=== PATIENT | male | born 1935 | race Caucasian/White ===

== ENCOUNTER 2016-05-12 09:12 | Outpatient (CLI) | payer MEDICARE ==
[2016-05-12 11:44] LABS: Cardiac Risk 3.3 (Less than 4.5)
== END 2016-05-12 09:13 | disposition home or self-care (01) ==
LOC: NAV LABSP 09:12
PROVIDERS: ATTEND Family Medicine
DX: I25.10 Atherosclerotic heart disease of native coronary artery without angina pectoris (principal)
CPT/HCPCS: 36415; 80061

== ENCOUNTER 2016-05-16 08:01 | Outpatient (CLI) | payer MEDICARE ==
[2016-05-16 09:00] LABS: #Eosinphils 0.1 thou/uL (0.0-0.7); #Lymphocytes 1.7 thou/uL (1.20-3.40); #Monocytes 0.4 thou/uL (0.11-0.59); #Neutrophils 8.2 thou/uL (1.40-6.50); %Basophils 0.4 % (0.0-1.0); %Eosinophils 1.2 % (0.0-10.0); %Lymphocytes 16.5 % (21.0-51.0); %Monocytes 4.1 % (0.0-10.0); %Neutrophils 77.8 % (42.0-75.0); Hemoglobin 13.5 g/dL (14.0-18.0); Mean Corpuscular HGB CONC 32.4 g/dL (32.0-36.0); Mean Corpuscular Hemoglobin 32.2 pg (27.0-31.0); Mean Corpuscular Volume 99.3 fl (80.0-94.0); Mean Platelet Volume 7.6 fL (7.4-10.4); Platelet Count 227 thou/uL (130-400); RBC Distribution Width 13.8 % (11.5-14.5); Red Blood Cell (RBC) Count 4.18 mill/uL (4.70-6.10); White Blood Cell (WBC) Count 10.6 thou/uL (4.8-10.8)
[2016-05-16 09:11] LABS: Anion Gap 16 mmol/L (10-20); BUN (Urea Nitrogen) 19 mg/dL (8.4-25.7); Calc. Creatinine Clearance 0 mL/min (70-130); Calcium 9.4 mg/dL (7.8-10.44); Carbon Dioxide 26 mmol/L (23-31); Cardiac Risk 3.1 (Less than 4.5); Chloride 105 mmol/L (98-107); Cholesterol 151 mg/dL (< 200 Desired); Estimated GFR-MDRD 77; Glucose 73 mg/dL (83-110); HDL Cholesterol 49 mg/dL (>60 Neg Risk); LDL Cholesterol, Calculated 85 mg/dL; Potassium 4.4 mmol/L (3.5-5.1); Sodium 143 mmol/L (136-145); Triglycerides 84 mg/dL (Less than 150)
== END 2016-05-16 08:02 | disposition home or self-care (01) ==
LOC: NAV LABSP 08:01
PROVIDERS: ATTEND Family Medicine
DX: E11.9 Type 2 diabetes mellitus without complications (principal)
CPT/HCPCS: 36415; 80048; 80061; 84443; 85025

== ENCOUNTER 2016-07-01 14:52 | Outpatient (CLI) | payer MEDICARE ==
[2016-07-01 20:43] LABS: Bilirubin Negative (Negative); Blood, Urine Negative (Negative); Clarity Clear (Clear); Glucose, Urine (Dipstick) Negative (Negative); Leukocyte Trace (Negative); Nitrite Negative (Negative); Protein, Urine (Dipstick) Negative (Neg-Trace); Urobilinogen 0.2 mg/dL (0.2-1.0); pH, Urine 5.5 (5.0-9.0)
[2016-07-01 21:25] LABS: Specific Gravity, Urine 1.025 (1.002-1.036)
[2016-07-01 21:26] LABS: Bacteria/HPF None Seen HPF (None Seen); Crystals/HPF 2+ AMORPH URATES HPF (Negative); RBC/HPF None Seen HPF (0-3); Squamous Epithelial 0-3 HPF (0-3); WBC/HPF 0-3 HPF (0-3)
== END 2016-07-01 14:53 | disposition home or self-care (01) ==
LOC: NAV LABSP 14:52
PROVIDERS: ATTEND Family Medicine
DX: R41.82 Altered mental status, unspecified (principal)
CPT/HCPCS: 81001; 87086

== ENCOUNTER 2016-08-08 07:30 | Outpatient (CLI) | payer OTHER ==
[2016-08-08 08:10] LABS: #Basophils 0.1 thou/uL (0.0-0.2); #Eosinphils 0.3 thou/uL (0.0-0.7); #Lymphocytes 2.5 thou/uL (1.20-3.40); #Monocytes 0.5 thou/uL (0.11-0.59); #Neutrophils 3.2 thou/uL (1.40-6.50); %Basophils 0.9 % (0.0-1.0); %Eosinophils 5.4 % (0.0-10.0); %Lymphocytes 37.7 % (21.0-51.0); %Monocytes 7.6 % (0.0-10.0); %Neutrophils 48.5 % (42.0-75.0); Hemoglobin 12.8 g/dL (14.0-18.0); Mean Corpuscular HGB CONC 32.9 g/dL (32.0-36.0); Mean Corpuscular Hemoglobin 30.9 pg (27.0-31.0); Mean Corpuscular Volume 93.9 fl (80.0-94.0); Platelet Count 208 thou/uL (130-400); Red Blood Cell (RBC) Count 4.14 mill/uL (4.70-6.10); White Blood Cell (WBC) Count 6.5 thou/uL (4.8-10.8)
[2016-08-08 08:30] LABS: Anion Gap 14 mmol/L (10-20); BUN (Urea Nitrogen) 13 mg/dL (8.4-25.7); Calc. Creatinine Clearance 0 mL/min (70-130); Carbon Dioxide 27 mmol/L (23-31); Chloride 103 mmol/L (98-107); Cholesterol 135 mg/dl (< 200 Desired); Estimated GFR-MDRD Greater than 90; Glucose 64 mg/dL (83-110); HDL Cholesterol 45 mg/dL (>60 Neg Risk); LDL Cholesterol, Calculated 75 mg/dL; Potassium 3.9 mmol/L (3.5-5.1); Sodium 140 mmol/L (136-145); Triglycerides 75 mg/dL (Less than 150)
== END 2016-08-08 07:31 | disposition home or self-care (01) ==
LOC: NAV LABSP 07:30
PROVIDERS: ATTEND Family Medicine
DX: E11.9 Type 2 diabetes mellitus without complications (principal)
CPT/HCPCS: 36415; 80048; 80061; 84443; 85025

== ENCOUNTER 2016-09-28 08:25 | Emergency (ER) | payer MEDICARE, SELFPAY ==
[2016-09-28] MEDS ORDERED: Acetaminophen 325 MG TAB ONE (09:33)
--- NOTE | 2016-09-28 10:13 | CT ---
CT HEAD NONCONTRAST DATE: 09/28/16 HISTORY: Fall. Head injury. COMPARISON: 11/07/15. FINDINGS: There is no evidence of acute intracranial hemorrhage or infarct. Diffuse cortical atrophy and chron ic ischemic small vessel disease are again demonstrated. There is no mass effect or shift of midline structures. Visualized paranasal sinuses remain well aerated. IMPRESSION: No acute traumatic injury is demonstrated. POS: [facility]
--- NOTE | 2016-09-28 10:19 | CT ---
CT CERVICAL SPINE NONCONTRAST: Date: 09/28/16 HISTORY: Fall. Neck injury. FINDINGS: Vertebral body heights are maintained. Degenerative changes include osteophytosis, multilevel disc s pace narrowing, and minimal degenerative retrolisthesis at the C3-4 and C4-5 levels. Cervicothoracic alignment is intact. No acute fracture or dislocation apparent. There is prominent calcification at the carotid bifurcations. IMPRESSION: 1. Degenerative changes of the cervical spine. No acute osseous abnormalities are demonstrated. 2. Atherosclerosis. POS: [facility]
--- NOTE | 2016-09-28 10:49 | RAD ---
LEFT ELBOW 4 VIEWS: Date: 09/28/16 FINDINGS: Fall. Left elbow injury. FINDINGS: Radiocapitellar alignment is maintained. Mild osteophytosis is present. There is no acute fracture, dislocation, or fluid distention of the joint capsule evident. IMPRESSION: No acute osseous abnormalities are demonstrated. POS: [facility]
--- NOTE | 2016-09-28 11:05 | CT ---
CT CHEST NONCONTRAST: Date: 09/28/16 HISTORY: Fall. Chest wall injury. FINDINGS: A mildly displaced fracture involves the lateral aspect of the left 5th rib. There is no evidence of pneumothorax. Degenerative changes involve the thoracic spine. Lungs are hyperinflated with scattered areas of interstitial scarring and mild bibasilar atelectasis . A 0.8 cm noncalcified nodule is present at the superior segment left lower lobe. Lack of contrast limits evaluation of the mediastinum. No hematoma is apparent. There is calcificati on throughout the arterial structures. IMPRESSION: 1. Left fifth rib fracture. No evidence of pneumothorax. 2. Subcentimeter left lower lobe lung nodule. Please consider follow-up CT in 6 months to evaluate for stability. 3. Atherosclerosis. 4. COPD. POS: [facility]
--- NOTE | 2016-09-28 11:19 | RAD ---
AP PELVIS 1 VIEW: Date: 09/28/16 HISTORY: Fall. Pelvic injury. FINDINGS: Upper sacral ala are partially obscured but not reliably contiguous. No displaced pelvic ring fractu res are apparent. Osseous structures are demineralized. There are degenerative changes of the lumbar spine and hips. IMPRESSION: Possible sacral injury. If symptoms are referable to the sacrum, please consider dedicated CT of the osseous pelvis. POS: [facility]
== END 2016-09-28 10:10 ==
LOC: NAV ERS 08:25
DX: S22.32XA Fracture of one rib, left side, initial encounter for closed fracture (principal); S50.02XA Contusion of left elbow, initial encounter; I25.10 Atherosclerotic heart disease of native coronary artery without angina pectoris; E11.9 Type 2 diabetes mellitus without complications; I10 Essential (primary) hypertension; G30.9 Alzheimer's disease, unspecified; W01.10XA Fall on same level from slipping, tripping and stumbling with subsequent striking against unspecified object, initial encounter
CPT/HCPCS: 70450; 71250; 72125; 72170

== ENCOUNTER 2016-11-04 09:43 | Outpatient (CLI) | payer MEDICARE, OTHER ==
[2016-11-04 09:58] LABS: Hemoglobin 12.7 g/dL (14.0-18.0); Mean Corpuscular HGB CONC 32.6 g/dL (32.0-36.0); Mean Corpuscular Hemoglobin 31.3 pg (27.0-31.0); Mean Corpuscular Volume 96.2 fl (80.0-94.0); Mean Platelet Volume 7.5 fL (7.4-10.4); Platelet Count 194 thou/uL (130-400); RBC Distribution Width 13.1 % (11.5-14.5); Red Blood Cell (RBC) Count 4.04 mill/uL (4.70-6.10); White Blood Cell (WBC) Count 7.9 thou/uL (4.8-10.8)
[2016-11-04 10:16] LABS: Bilirubin Negative (Negative); Blood, Urine Trace (Negative); Clarity Cloudy (Clear); Glucose, Urine (Dipstick) Negative (Negative); Leukocyte Large (Negative); Nitrite Positive (Negative); Protein, Urine (Dipstick) 30 mg/dL (Neg-Trace); Urobilinogen 0.2 mg/dL (0.2-1.0)
[2016-11-04 10:33] LABS: pH, Urine Greater/Equal 9.0 (5.0-9.0)
[2016-11-04 10:35] LABS: Bacteria/HPF 1+ HPF (None Seen); RBC/HPF 0-3 HPF (0-3); Transitional Epithelial 0-3 HPF (0-3)
[2016-11-04 10:36] LABS: Other Microscopic Description NO
[2016-11-04 10:38] LABS: Crystals/HPF 2+ AMORPH URATES HPF (Negative)
== END 2016-11-04 09:44 | disposition home or self-care (01) ==
LOC: NAV LABSP 09:43
PROVIDERS: ATTEND Family Medicine
DX: R31.9 Hematuria, unspecified (principal)
CPT/HCPCS: 36415; 81001; 85027; 87077; 87086; 87186

== ENCOUNTER 2016-11-07 07:34 | Outpatient (CLI) | payer MEDICARE, OTHER ==
[2016-11-07 09:38] LABS: Hemoglobin A1c 6.1 % (4.0-6.0)
== END 2016-11-07 07:35 | disposition home or self-care (01) ==
LOC: NAV LABSP 07:34
PROVIDERS: ATTEND Nurse Practitioner Adult Health
DX: Z51.81 Encounter for therapeutic drug level monitoring (principal); Z79.899 Other long term (current) drug therapy
CPT/HCPCS: 36415; 83036

== ENCOUNTER 2016-11-11 11:25 | Outpatient (CLI) | payer MEDICARE, OTHER ==
[2016-11-11 14:44] LABS: #Basophils 0.1 thou/uL (0.0-0.2); #Eosinphils 0.3 thou/uL (0.0-0.7); #Lymphocytes 2.1 thou/uL (1.20-3.40); #Monocytes 0.3 thou/uL (0.11-0.59); #Neutrophils 2.5 thou/uL (1.40-6.50); %Basophils 1.2 % (0.0-1.0); %Eosinophils 5.7 % (0.0-10.0); %Lymphocytes 39.2 % (21.0-51.0); %Monocytes 6.5 % (0.0-10.0); %Neutrophils 47.6 % (42.0-75.0); Hemoglobin 12.4 g/dL (14.0-18.0); Mean Corpuscular HGB CONC 31.8 g/dL (32.0-36.0); Mean Corpuscular Hemoglobin 30.8 pg (27.0-31.0); Mean Corpuscular Volume 96.8 fl (80.0-94.0); Mean Platelet Volume 6.9 fL (7.4-10.4); Platelet Count 254 thou/uL (130-400); RBC Distribution Width 12.9 % (11.5-14.5); Red Blood Cell (RBC) Count 4.02 mill/uL (4.70-6.10); White Blood Cell (WBC) Count 5.3 thou/uL (4.8-10.8)
[2016-11-11 15:45] LABS: Anion Gap 13 mmol/L (10-20); BUN (Urea Nitrogen) 15 mg/dL (8.4-25.7); Calc. Creatinine Clearance 0 mL/min (70-130); Calcium 9.1 mg/dL (7.8-10.44); Carbon Dioxide 28 mmol/L (23-31); Cardiac Risk 3.2 (Less than 4.5); Chloride 103 mmol/L (98-107); Cholesterol 137 mg/dl (< 200 Desired); Estimated GFR-MDRD 90; Glucose 86 mg/dL (83-110); HDL Cholesterol 43 mg/dL (>60 Neg Risk); LDL Cholesterol, Calculated 75 mg/dL; Potassium 4.2 mmol/L (3.5-5.1); Sodium 140 mmol/L (136-145); Triglycerides 97 mg/dL (Less than 150)
== END 2016-11-11 11:26 | disposition home or self-care (01) ==
LOC: NAV LABSP 11:25
PROVIDERS: ATTEND Family Medicine
DX: E11.9 Type 2 diabetes mellitus without complications (principal)
CPT/HCPCS: 36415; 80048; 80061; 84443; 85025

== ENCOUNTER 2016-12-21 13:52 | Emergency (ER) | payer MEDICARE, OTHER, MEDICAID ==
[2016-12-21] MEDS ORDERED: Acetaminophen 500 MG TAB ONE (14:01)
--- NOTE | 2016-12-21 15:37 | CT ---
NONCONTRAST HEAD CT: Date: 12/21/16 HISTORY: Fall. Hit back of head. COMPARISON: 09/28/16. TECHNIQUE: Noncontrast head CT performed from skull base to skull vertex. FINDINGS: No parenchymal hemorrhage or extra-axial hematoma. No midline shift. Basilar cisterns are patent. Ag e-appropriate atrophy. Cortical causey-white matter differentiation is preserved. Ventricles and sulci are patent and symmetric. Chronic small vessel ischemic changes of white matter are identified. Adequate aeration of the sinuses and mastoid air cells. Intact calvarium. IMPRESSION: No intracranial post-traumatic sequelae. POS: [facility]
== END 2016-12-21 15:47 ==
LOC: NAV ERS 13:52
DX: S00.03XA Contusion of scalp, initial encounter (principal); K21.9 Gastro-esophageal reflux disease without esophagitis; D50.0 Iron deficiency anemia secondary to blood loss (chronic); E78.5 Hyperlipidemia, unspecified; F03.90 Unspecified dementia, unspecified severity, without behavioral disturbance, psychotic disturbance, mood disturbance, and anxiety; F41.9 Anxiety disorder, unspecified; F32.9 Major depressive disorder, single episode, unspecified; I25.10 Atherosclerotic heart disease of native coronary artery without angina pectoris; E11.9 Type 2 diabetes mellitus without complications; I10 Essential (primary) hypertension; Z79.82 Long term (current) use of aspirin; Z79.899 Other long term (current) drug therapy; W19.XXXA Unspecified fall, initial encounter; Y92.009 Unspecified place in unspecified non-institutional (private) residence as the place of occurrence of the external cause
CPT/HCPCS: 70450

== ENCOUNTER 2017-07-19 19:27 | Emergency (ER) | payer MEDICARE, OTHER ==
[2017-07-19] MEDS ORDERED: Acetaminophen 500 MG TAB ONE (19:49)
--- NOTE | 2017-07-19 20:46 | CT ---
HEAD CT NONCONTRAST: Indication: Fall with head injury. FINDINGS: There is parenchymal volume loss with compensatory dilatation of the ventricular system, similar appe aring. 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 Mild to moderate chronic microvascular ischemic disease involves the cerebral white matter. There is no acute intracranial mas s effect. No midline shift. IMPRESSION: 1. No acute intracranial abnormalities. 2. Additional details, as described above. POS: [facility]
== END 2017-07-19 21:24 ==
LOC: NAV ERS 19:27
DX: S00.03XA Contusion of scalp, initial encounter (principal); K21.9 Gastro-esophageal reflux disease without esophagitis; E78.5 Hyperlipidemia, unspecified; I25.10 Atherosclerotic heart disease of native coronary artery without angina pectoris; G30.9 Alzheimer's disease, unspecified; F02.80 Dementia in other diseases classified elsewhere, unspecified severity, without behavioral disturbance, psychotic disturbance, mood disturbance, and anxiety; E11.9 Type 2 diabetes mellitus without complications; I10 Essential (primary) hypertension; F41.9 Anxiety disorder, unspecified; F32.9 Major depressive disorder, single episode, unspecified; Z79.899 Other long term (current) drug therapy; Z79.82 Long term (current) use of aspirin; Z79.4 Long term (current) use of insulin; Z91.81 History of falling; W18.30XA Fall on same level, unspecified, initial encounter; Y92.121 Bathroom in nursing home as the place of occurrence of the external cause
CPT/HCPCS: 70450

== ENCOUNTER 2018-07-14 14:09 | Emergency (ER) | payer MEDICARE, OTHER ==
[2018-07-14] MEDS ORDERED: Sodium Chloride 0.9% 500 ML ONE (14:55)
[2018-07-14 15:29] LABS: Hemoglobin 13.7 g/dL (14.0-18.0); Mean Corpuscular HGB CONC 31.5 g/dL (32.0-36.0); Mean Corpuscular Hemoglobin 31.1 pg (27.0-31.0); Mean Corpuscular Volume 98.8 fL (78.0-98.0); Mean Platelet Volume 6.6 fL (7.4-10.4); Platelet Count 250 thou/uL (130-400); RBC Distribution Width 12.3 % (11.5-14.5); Red Blood Cell (RBC) Count 4.41 mill/uL (4.70-6.10); White Blood Cell (WBC) Count 12.4 thou/uL (4.8-10.8)
[2018-07-14 15:47] LABS: ALT (SGPT) 12 U/L (8-55); AST (SGOT) 19 U/L (5-34); Alkaline Phosphatase 33 U/L (40-150); Anion Gap 20 mmol/L (10-20); BUN (Urea Nitrogen) 17 mg/dL (8.4-25.7); Bilirubin, Total 0.5 mg/dL (0.2-1.2); Calc. Creatinine Clearance 0 mL/min (70-130); Carbon Dioxide 20 mmol/L (23-31); Chloride 100 mmol/L (98-107); Estimated GFR-MDRD 61; Globulin 3.3 g/dL (2.4-3.5); Glucose 202 mg/dL (83-110); Lipase 11 U/L (8-78); Potassium 4.2 mmol/L (3.5-5.1); Protein, Total 7.3 g/dL (5.8-8.1); Sodium 136 mmol/L (136-145)
[2018-07-14 15:51] LABS: Band 3 % (5-11); Lymphocytes 9 % (21-51); MDiff Complete? YES; Monocytes 5 % (0-10); Neutrophil 83 % (42-75); Platelet Morphology Comment Appears Adequate; RBC Morphology Normal
[2018-07-14 16:00] LABS: Bilirubin Small (Negative); Blood, Urine Moderate (Negative); Clarity Clear (Clear); Glucose, Urine (Dipstick) Negative (Negative); Leukocyte Negative (Negative); Nitrite Negative (Negative); Protein, Urine (Dipstick) 100 mg/dL (Neg-Trace)
[2018-07-14] MEDS ORDERED: Sodium Chloride 0.9% 1,000 ML ONE (16:00)
[2018-07-14 16:01] LABS: Specific Gravity, Urine 1.018 (1.002-1.036)
--- NOTE | 2018-07-14 16:01 | RAD ---
XR Chest 1 View Portable HISTORY: Chest pain COMPARISON: 03/09/2017 FINDINGS: There are changes of median sternotomy. The heart size is stable. There is mild pulmonary v ascular congestion. Old left-sided rib fractures are seen. No lobar consolidation, pneumothoraces or large effusions are identified.
[2018-07-14 16:04] LABS: Bacteria/HPF Rare-Few HPF (None Seen); Squamous Epithelial 0-3 HPF (0-3)
[2018-07-14 16:05] LABS: Crystals/HPF 1+ AMORPH URATES HPF (Negative)
[2018-07-14] MEDS ORDERED: Acetaminophen 500 MG TAB ONE (16:07)
[2018-07-14] MEDS ORDERED: Sodium Chloride 0.9% 100 ML ONE ×2 (16:08→17:18)
[2018-07-14] MEDS ORDERED: cefTRIAXone\\ROCEPHIN 1 GM VIAL ONE (16:08)
[2018-07-14] MEDS ORDERED: Piperacillin/Tazobactam 3.375 GM VIAL ONE ×2 (17:18→17:22)
--- NOTE | 2018-07-14 17:27 | CT ---
CT brain. HISTORY: Altered mental status and dementia Noncontrast enhanced images of the brain demonstrates cortical atrophy and deep white matter ischemic changes. Old left thalamic area of lacunar infarction seen. No other acute abnormalities noted. IMPRESSION: Cortical atrophy. No acute intracranial abnormality seen.
== END 2018-07-14 17:52 | disposition short-term general hospital (02) ==
LOC: NAV ERS 14:09
DX: E86.0 Dehydration (principal); R41.82 Altered mental status, unspecified; F03.90 Unspecified dementia, unspecified severity, without behavioral disturbance, psychotic disturbance, mood disturbance, and anxiety; R50.9 Fever, unspecified; K21.9 Gastro-esophageal reflux disease without esophagitis; D50.9 Iron deficiency anemia, unspecified; E78.5 Hyperlipidemia, unspecified; I25.10 Atherosclerotic heart disease of native coronary artery without angina pectoris; G30.9 Alzheimer's disease, unspecified; E11.9 Type 2 diabetes mellitus without complications; F41.9 Anxiety disorder, unspecified; F32.9 Major depressive disorder, single episode, unspecified; Z79.899 Other long term (current) drug therapy; Z79.4 Long term (current) use of insulin
CPT/HCPCS: 36415; 51701; 70450; 71045; 80053; 81003; 81015; 82140; 83605; 83690; 85025; 87040; 87077; 87086; 87186; 87804; 93005; 96361; 96365; 96375; J0696; J2543; J3490; J7050

== ENCOUNTER 2020-12-19 11:00 | Emergency (ER) | payer MEDICARE, MEDICAID | END 2020-12-19 15:20 | disposition home or self-care (01) | LOC: NAV ERS 11:00 | DX: S09.90XA Unspecified injury of head, initial encounter (principal); K21.9 Gastro-esophageal reflux disease without esophagitis; D50.9 Iron deficiency anemia, unspecified; E78.5 Hyperlipidemia, unspecified; E78.00 Pure hypercholesterolemia, unspecified; I25.10 Atherosclerotic heart disease of native coronary artery without angina pectoris; E11.9 Type 2 diabetes mellitus without complications; I10 Essential (primary) hypertension; E55.9 Vitamin D deficiency, unspecified; Z86.73 Personal history of transient ischemic attack (TIA), and cerebral infarction without residual deficits; W07.XXXA Fall from chair, initial encounter; Z79.84 Long term (current) use of oral hypoglycemic drugs; Z79.899 Other long term (current) drug therapy | CPT/HCPCS: 36416; 70450; 72125; 72170 ==